=== PATIENT | male | born 1990 | race African-American/Black ===

== ENCOUNTER 2017-07-20 20:18 | Emergency (ER) | payer BC ==
[~2017-07-20] VITALS: Ht 175.3 cm; Wt 115.7 kg
[2017-07-20 20:20] VITALS: BP 136/84
[2017-07-20] MEDS ORDERED: ORPH100T PO (21:00)
[2017-07-20] MEDS ORDERED: TRAM50TA PO (21:00)
[2017-07-20] MEDS ORDERED: KETOROLAC 60 MG/2 ML INJ. IM ONE (21:00)
[2017-07-20] MEDS ORDERED: ORPHENADRINE CITRATE 60 MG/2 ML VIAL. IM ONE (21:00)
[2017-07-20] MEDS ORDERED: PRED20TA PO (21:00)
--- NOTE | 2017-07-20 21:01 | PHYS DOC ---
Past Medical History Past Medical History: No Pertinent History Past Surgical History: Other Additional Past Surgical Histo: L knee x2 Alcohol Use: Occasionally Drug Use: None Adult General Chief Complaint Chief Complaint: LOWER EXT PAIN [facility] HPI Patient is a 26 year old male presents to the emergency department with a two- week history of low back pain. Patient states that on July 08 while he was working at [employer], he felt a pop in his low back and within an hour had developed pain that radiated into the left buttock and leg. He states that he was seen in the work clinic and placed on light duty. He states that 4 days later the pain persisted and he requested evaluation at the [employer] comp clinic. Patient states that he was evaluated and prescribed Flexeril and Naprosyn of which she has intermittently taken the medications. He states that the pain has persisted and he was started in physical therapy today. Patient states the pain is persistent in the lumbar region into the left buttock and lower extremity. He has no loss of bowel or bladder control. No loss of function of lower extremity. Patient is in the emergency department seeking further evaluation and pain medications. Review of Systems Review of Systems Constitutional: Denies fever or chills [] Eyes: Denies change in visual acuity, redness, or eye pain [] HENT: Denies nasal congestion or sore throat [] Respiratory: Denies cough or shortness of breath [] Cardiovascular: No additional information not addressed in HPI [] GI: Denies abdominal pain, nausea, vomiting, bloody stools or diarrhea [] : Denies dysuria or hematuria [] Musculoskeletal: Low back pain Integument: Denies rash or skin lesions [] Neurologic: Denies headache, focal weakness or sensory changes [] Endocrine: Denies polyuria or polydipsia [] Current Medications Current Medications Current Medications Medications (Trade) Dose Ordered Sig/Kaela Start Time Stop Time Status Last Admin Dose Admin Ketorolac Tromethamine (Toradol Im) 60 mg 1X ONCE 07/20/17 21:00 07/20/17 21:01 UNV Orphenadrine Citrate (Norflex) 60 mg 1X ONCE 07/20/17 21:00 07/20/17 21:01 UNV Allergies Allergies Allergies Coded Allergies Type Severity Reaction Last Updated Verified No Known Drug Allergies 04/26/15 No Physical Exam Physical Exam Constitutional: Well developed, well nourished, no acute distress, non-toxic appearance. [] HENT: Normocephalic, atraumatic, bilateral external ears normal, oropharynx moist, no oral exudates, nose normal. [] Eyes: PERRLA, EOMI, conjunctiva normal, no discharge. [] Neck: Normal range of motion, no tenderness, supple, no stridor. [] Cardiovascular:Heart rate regular rhythm, no murmur [] Lungs & Thorax: Bilateral breath sounds clear to auscultation [] Abdomen: Bowel sounds normal, soft, no tenderness, no masses, no pulsatile masses. [] Skin: Warm, dry, no erythema, no rash. [] Back: No midline spinous tenderness. He has mild tenderness in the lumbar paraspinous muscles extending over the left sacroiliac crest. Negative straight raise leg test. Neurovascular intact distally. No saddle anesthesia. His muscle strength is 5 over 5. Extremities: No tenderness, no cyanosis, no clubbing, ROM intact, no edema. [] Neurologic: Alert and oriented X 3, normal motor function, normal sensory function, no focal deficits noted. [] Psychologic: Affect normal, judgement normal, mood normal. [] Current Patient Data Vital Signs Vital Signs Date Time Temp Pulse Resp B/P (MAP) Pulse Ox O2 Delivery O2 Flow Rate FiO2 07/20/17 20:20 98.3 87 18 100 Room Air 98.3 EKG EKG [] Radiology/Procedures Radiology/Procedures [] Course & Med Decision Making Course & Med Decision Making Pertinent Labs and Imaging studies reviewed. (See chart for details) []I discussed with patient the options for radiographic imaging. He would prefer an MRI which is not available in a nonlife threatening situation in the emergency department. I did discuss this with the patient he is in agreement the plan. I did offer him a CAT scan of the lumbar region and he declined. Patient was given Norflex 60 mg IM Toradol 60 mg IM in the emergency department. He will be discharged with prednisone, tramadol and Norflex. Patient is advised to follow-up with workman's comp tomorrow. Dragon Disclaimer Dragon Disclaimer This electronic medical record was generated, in whole or in part, using a voice recognition dictation system. Departure Departure Impression: Primary Impression: Sciatica Disposition: 01 HOME, SELF-CARE Condition: STABLE Referrals: SHILA BILLINGSLEY MD (PCP) Patient Instructions: Sciatica Additional Instructions: Follow up workman's comp tomorrow Scripts Prednisone (PREDNISONE) 20 Mg Tablet 1 TAB PO DAILY, #5 TAB Prov: RYLEY NAVA APRN 07/20/17 Tramadol Hcl (TRAMADOL HCL) 50 Mg Tablet 50 MG PO Q6HRS Y for PAIN, #10 TAB 0 Refills Prov: RYLEY NAVA APRN 07/20/17 Orphenadrine Citrate (ORPHENADRINE CITRATE) 100 Mg Tablet.er 1 TAB PO BID, #20 TAB 1 Refill Prov: RYLEY NAVA APRN 07/20/17 Problem Qualifiers Primary Impression: Sciatica Laterality: left Qualified Codes: M54.32 - Sciatica, left side RYLEY NAVA APRN Jul 20, 2017 21:01
== END 2017-07-20 21:08 | disposition home or self-care (01) ==
LOC: ER 20:18
DX: M54.42 Lumbago with sciatica, left side (principal)
CPT/HCPCS: 96372; 99284; J1885; J2360

== ENCOUNTER 2017-11-29 01:11 | Emergency (ER) | payer OTHER, BC ==
[2017-11-29] MEDS: IBUPROFEN 600 MG TABLET. PO ×2 (03:15)
== END 2017-11-29 03:20 | disposition home or self-care (01) ==
LOC: ER 01:11
DX: M25.511 Pain in right shoulder (principal); X50.0XXA Overexertion from strenuous movement or load, initial encounter; Y93.89 Activity, other specified; Y92.89 Other specified places as the place of occurrence of the external cause; Y99.8 Other external cause status
CPT/HCPCS: 73030; 99284